=== PATIENT | female | born 1970 ===

== ENCOUNTER 2018-12-06 09:12 | Emergency (ER) | payer OTHER ==
[2018-12-06 09:18] VITALS: RESP 18
[2018-12-06] MEDS ORDERED: SODIUM CHLORIDE 0.9% 2,000 ML IV STA (09:32)
[2018-12-06] MEDS ORDERED: ONDANSETRON 4 MG/2 ML VIAL IVP STA ×2 (09:32→11:44)
[2018-12-06] MEDS ORDERED: KETOROLAC 30 MG/ML 1 ML VIAL IVP STA (09:32)
--- NOTE | 2018-12-06 09:46 | ED ---
Nausea/Vomiting/Diarrhea HPI - General Chief complaint: Nausea/Vomiting/Diarrhea Stated complaint: Vomiting Time Seen by Provider: 12/06/18 09:20 Source: patient, RN notes reviewed Mode of arrival: ambulatory Limitations: no limitations - History of Present Illness Initial comments: This a 48-year-old female presents emergency Department chief complaint left flank pain. Patient states that she has a history kidney stones. Patient states that she has hesitancy of urination at this time. She reports no fevers or chills at home temp 99.9 currently. Patient states pain worsens morning and she cannot tolerated. Patient does admit to nausea vomiting. Denies any diarrhea constipation. Patient states his pain feels exactly the same as her prior kidney stones. - Related Data Home Medications Medication Instructions Recorded Confirmed Acetaminophen/Pamabrom [Midol 1 tab PO Q12H 12/06/18 12/06/18 Cap[place]] Previous Rx's Medication Instructions Recorded Hydrocodone/Acetaminophen [[place] 1 tab PO Q6HR PRN #12 tab 12/06/18 5-325] Ketorolac [Toradol] 10 mg PO Q8HR #15 tab 12/06/18 Ondansetron Odt [Zofran Odt] 4 mg PO Q8HR PRN #10 tab 12/06/18 Allergies Allergy/AdvReac Type Severity Reaction Status Date / Time No Known Allergies Allergy Verified 12/06/18 09:28 Review of Systems ROS Statement: Those systems with pertinent positive or pertinent negative responses have been documented in the HPI. ROS Other: All systems not noted in ROS Statement are negative. Past Medical History Past Medical History: No Reported History History of Any Multi-Drug Resistant Organisms: None Reported Past Surgical History: No Surgical Hx Reported Past Psychological History: No Psychological Hx Reported Smoking Status: Current every day smoker Past Alcohol Use History: Occasional Past Drug Use History: None Reported General Exam Limitations: no limitations General appearance: alert, in no apparent distress Head exam: Present: atraumatic, normocephalic, normal inspection Neck exam: Present: normal inspection. Absent: tenderness, meningismus, lymphadenopathy Respiratory exam: Present: normal lung sounds bilaterally. Absent: respiratory distress, wheezes, rales, rhonchi, stridor Cardiovascular Exam: Present: regular rate, normal rhythm, normal heart sounds. Absent: systolic murmur, diastolic murmur, rubs, gallop, clicks GI/Abdominal exam: Present: soft, tenderness (Left-sided), normal bowel sounds. Absent: distended, guarding, rebound, rigid Back exam: Absent: CVA tenderness (R), CVA tenderness (L) Skin exam: Present: warm, dry, intact, normal color. Absent: rash Course Vital Signs 12/06/18 12/06/18 09:15 10:46 Temperature 99.9 F H Pulse Rate 80 68 Respiratory 18 18 Rate Blood Pressure 143/81 115/76 O2 Sat by Pulse 98 99 Oximetry Medical Decision Making - Medical Decision Making 48-year-old female presented for left flank pain. Patient did have labs, CT and urinalysis. Urine was cultured. Evidence of hematuria and nitrite positive with WBCs. Patient given [address] Hopper discuss case with Dr. Michaels who recommended patient be given antibiotics discharged with Levaquin and will follow-up in his office tomorrow. - Lab Data Result diagrams: 12/06/18 09:50 12/06/18 09:50 Lab Results 12/06/18 12/06/18 12/06/18 Range/Units 09:30 09:50 09:50 WBC 12.4 H (3.8-10.6) k/uL RBC 5.03 (3.80-5.40) m/uL Hgb 15.0 (11.4-16.0) gm/dL Hct 46.7 H (34.0-46.0) % MCV 92.8 (80.0-100.0) fL MCH 29.8 (25.0-35.0) pg MCHC 32.1 (31.0-37.0) g/dL RDW 14.8 (11.5-15.5) % Plt Count 222 (150-450) k/uL Neutrophils % 76 % Lymphocytes % 16 % Monocytes % 5 % Eosinophils % 2 % Basophils % 1 % Neutrophils # 9.5 H (1.3-7.7) k/uL Lymphocytes # 1.9 (1.0-4.8) k/uL Monocytes # 0.6 (0-1.0) k/uL Eosinophils # 0.2 (0-0.7) k/uL Basophils # 0.1 (0-0.2) k/uL Sodium 140 (137-145) mmol/L Potassium 4.3 (3.5-5.1) mmol/L Chloride 108 H (98-107) mmol/L Carbon Dioxide 23 (22-30) mmol/L Anion Gap 9 mmol/L BUN 21 H (7-17) mg/dL Creatinine 0.83 (0.52-1.04) mg/dL Est GFR (CKD-EPI)AfAm >90 (>60 ml/min/1.73 sqM) Est GFR (CKD-EPI)NonAf 84 (>60 ml/min/1.73 sqM) Glucose 106 H (74-99) mg/dL Plasma Lactic Acid Santi (0.7-2.0) mmol/L Calcium 10.2 (8.4-10.2) mg/dL Total Bilirubin 0.4 (0.2-1.3) mg/dL AST 35 (14-36) U/L ALT 46 (9-52) U/L Alkaline Phosphatase 116 (38-126) U/L Total Protein 7.4 (6.3-8.2) g/dL Albumin 4.5 (3.5-5.0) g/dL Amylase 67 (30-110) U/L Lipase 219 (23-300) U/L Urine Color Yellow Urine Appearance Cloudy H (Clear) Urine pH 5.5 (5.0-8.0) Ur Specific [place] 1.036 H (1.001-1.035) Urine Protein 1+ H (Negative) Urine Glucose (UA) Negative (Negative) Urine Ketones Negative (Negative) Urine Blood Moderate H (Negative) Urine Nitrite Positive H (Negative) Urine Bilirubin Negative (Negative) Urine Urobilinogen 2.0 (<2.0) mg/dL Ur Leukocyte Esterase Moderate H (Negative) Urine RBC 128 H (0-5) /hpf Urine WBC 48 H (0-5) /hpf Ur Squamous Epith Cells 19 H (0-4) /hpf Calcium Oxalate Crystal Occasional H (None) /hpf Amorphous Sediment Rare H (None) /hpf Urine Bacteria Many H (None) /hpf Urine Mucus Moderate H (None) /hpf 12/06/18 Range/Units 09:50 WBC (3.8-10.6) k/uL RBC (3.80-5.40) m/uL Hgb (11.4-16.0) gm/dL Hct (34.0-46.0) % MCV (80.0-100.0) fL MCH (25.0-35.0) pg MCHC (31.0-37.0) g/dL RDW (11.5-15.5) % Plt Count (150-450) k/uL Neutrophils % % Lymphocytes % % Monocytes % % Eosinophils % % Basophils % % Neutrophils # (1.3-7.7) k/uL Lymphocytes # (1.0-4.8) k/uL Monocytes # (0-1.0) k/uL Eosinophils # (0-0.7) k/uL Basophils # (0-0.2) k/uL Sodium (137-145) mmol/L Potassium (3.5-5.1) mmol/L Chloride (98-107) mmol/L Carbon Dioxide (22-30) mmol/L Anion Gap mmol/L BUN (7-17) mg/dL Creatinine (0.52-1.04) mg/dL Est GFR (CKD-EPI)AfAm (>60 ml/min/1.73 sqM) Est GFR (CKD-EPI)NonAf (>60 ml/min/1.73 sqM) Glucose (74-99) mg/dL Plasma Lactic Acid Santi 1.3 (0.7-2.0) mmol/L Calcium (8.4-10.2) mg/dL Total Bilirubin (0.2-1.3) mg/dL AST (14-36) U/L ALT (9-52) U/L Alkaline Phosphatase (38-126) U/L Total Protein (6.3-8.2) g/dL Albumin (3.5-5.0) g/dL Amylase (30-110) U/L Lipase (23-300) U/L Urine Color Urine Appearance (Clear) Urine pH (5.0-8.0) Ur Specific [place] (1.001-1.035) Urine Protein (Negative) Urine Glucose (UA) (Negative) Urine Ketones (Negative) Urine Blood (Negative) Urine Nitrite (Negative) Urine Bilirubin (Negative) Urine Urobilinogen (<2.0) mg/dL Ur Leukocyte Esterase (Negative) Urine RBC (0-5) /hpf Urine WBC (0-5) /hpf Ur Squamous Epith Cells (0-4) /hpf Calcium Oxalate Crystal (None) /hpf Amorphous Sediment (None) /hpf Urine Bacteria (None) /hpf Urine Mucus (None) /hpf Disposition Clinical Impression: UTI (urinary tract infection), Ureteral calculi Disposition: HOME SELF-CARE Condition: Stable Instructions (If sedation given, give patient instructions): Kidney Stones (ED) Additional Instructions: Please call urology today and schedule appointment for tomorrow as directed.Please return to the Emergency Department if symptoms worsen or any other concerns. Prescriptions: Hydrocodone/Acetaminophen [[place] 5-325] 1 tab PO Q6HR PRN #12 tab PRN Reason: Pain Ketorolac [Toradol] 10 mg PO Q8HR #15 tab Ondansetron Odt [Zofran Odt] 4 mg PO Q8HR PRN #10 tab PRN Reason: Nausea Is patient prescribed a controlled substance at d/c from ED?: Yes When asked, does pt state using other controlled substances?: No If prescribed controlled substance>3 days was MAPS reviewed?: Prescribed <3 Days If opioid is for acute pain is fill amount 7 days or less?: Yes If Rx opioid, was Start Talking consent form obtained?: Yes Referrals: None,Stated [Primary Care Provider] - 1-2 days Evangelist Michaels MD [STAFF PHYSICIAN] - 1-2 days Time of Disposition: 11:48
[2018-12-06 10:12] LABS: Basophils # (A) 0.1 k/uL (0-0.2); Basophils % (A) 1 %; Eosinophils # (A) 0.2 k/uL (0-0.7); Eosinophils % (A) 2 %; HCT 46.7 % (34.0-46.0); Lymphocytes # (A) 1.9 k/uL (1.0-4.8); Lymphocytes % (A) 16 %; MCH 29.8 pg (25.0-35.0); MCHC 32.1 g/dL (31.0-37.0); MCV 92.8 fL (80.0-100.0); Mean Platelet Volume 7.6; Monocytes # (A) 0.6 k/uL (0-1.0); Monocytes % (A) 5 %; Neutrophils # (A) 9.5 k/uL (1.3-7.7); Neutrophils % (A) 76 %; Platelet Count 222 k/uL (150-450); RBC 5.03 m/uL (3.80-5.40); RDW 14.8 % (11.5-15.5); WBC 12.4 k/uL (3.8-10.6)
[2018-12-06 10:14] LABS: Amorphous Sediment,Urine Rare /hpf; Appearance,Urine Cloudy (Clear); Bacteria,Urine Many /hpf; Bilirubin,Urine Negative (Negative); Blood,Urine Moderate (Negative); Calcium Oxalate Crystals,Urine Occasional /hpf; Color,Urine Yellow; Glucose,Urine (UA) Negative (Negative); Ketones,Urine Negative (Negative); Leukocyte Esterase,Urine Moderate (Negative); Mucus,Urine Moderate /hpf; Nitrite,Urine Positive (Negative); PH, Urine 5.5 (5.0-8.0); Protein,Urine 1+ (Negative); RBC,Urine 128 /hpf (0-5); Specific Gravity,Urine 1.036 (1.001-1.035); Squamous Epithelial Cell,Urine 19 /hpf (0-4)
[2018-12-06] MEDS ORDERED: cefTRIAXone IN SWFI 1,000 MG/10 ML SYRINGE IVP STA ×2 (10:19→11:44)
[2018-12-06 10:20] LABS: ALT 46 U/L (9-52); AST 35 U/L (14-36); African American GFR (CKD) >90 (>60 ml/min/1.73 sqM); Albumin 4.5 g/dL (3.5-5.0); Alkaline Phosphatase 116 U/L (38-126); Amylase 67 U/L (30-110); Anion Gap 9 mmol/L; Blood Urea Nitrogen 21 mg/dL (7-17); Calcium 10.2 mg/dL (8.4-10.2); Carbon Dioxide 23 mmol/L (22-30); Chloride 108 mmol/L (98-107); Glucose 106 mg/dL (74-99); Lipase 219 U/L (23-300); Potassium 4.3 mmol/L (3.5-5.1); Sodium 140 mmol/L (137-145); Total Bilirubin 0.4 mg/dL (0.2-1.3); Total Protein 7.4 g/dL (6.3-8.2)
--- NOTE | 2018-12-06 10:55 | CT ---
EXAMINATION TYPE: CT abdomen pelvis wo con DATE OF EXAM: 12/06/2018 COMPARISON: None HISTORY: 48-year-old female Left flank pain, hematuria, nausea, vomiting, dysuria. History of prior stones. CT DLP: 523.7 mGycm. Automated exposure control for dose reduction was used. TECHNIQUE: Contiguous axial scanning of the abdomen and pelvis without IV contrast. Coronal and sagit frederick reconstructions performed. FINDINGS: Heart normal size without pericardial effusion. Mild strandy dependent atelectasis without pleural ef fusion. Noncontrast appearance of the liver, gallbladder, adrenal glands, right kidney, spleen, and pancreas show no gross abnormality. There is moderate left-sided hydronephrosis and hydroureter with a 6 mm obstructing calculus at the l eft UVJ. No dilated small bowel, free fluid, or free air. No mesenteric or retroperitoneal lymphadenopathy. Mild generalized colonic wall thickening likely secondary to nondistention. Normal appendix. Bladder is collapsed but with a suggestion of circumferential wall thickening on the sagittal series. Anteverted uterus and bilateral ovaries are visualized. No abnormal fluid collection in the pelvis o r pelvic lymphadenopathy seen. Bones: No osseous destructive process. IMPRESSION: 1. A 6 mm calculus at the left UVJ with moderate obstructive uropathy. 2. Circumferential bladder wall thickening. Correlate for cystitis. 3. Mild generalized circumferential wall thickening of the colon likely due to nondistention rather than mild colitis. Clinically correlate.
[2018-12-06] MEDS ORDERED: MORPHINE SULFATE 4 MG/ML SYRINGE IVP STA (11:44)
[2018-12-06 12:38] VITALS: BP 112/64; PULSE 70; TEMP 97.7
== END 2018-12-06 12:48 | disposition home or self-care (01) ==
LOC: EC 09:12
DX: N20.1 Calculus of ureter (principal); N39.0 Urinary tract infection, site not specified; F17.200 Nicotine dependence, unspecified, uncomplicated; Z79.891 Long term (current) use of opiate analgesic; Z79.899 Other long term (current) drug therapy; Z87.442 Personal history of urinary calculi
CPT/HCPCS: 99284; 96374; 96375 ×3; 96376 ×2; 96361 ×2; 36415; 80053; 82150; 83605; 83690; 85025; 81001; 87086; 74176; J2270; J2405; J0696; J1885; 87077; 87186

== ENCOUNTER 2021-07-30 12:13 | Inpatient (IN) | payer BC ==
[2021-07-30] MEDS ORDERED: DINOPROSTONE 10 MG INSERT.ER VAGINAL ONE (16:01)
[2021-07-30 16:30] LABS: Glucose,Whole Blood 77 mg/dL (75-99)
[2021-07-31] MEDS: BUTORPHANOL 1 MG/ML 1 ML VIAL IV PRN ×3 (02:58→12:05)
[2021-07-31] MEDS ORDERED: METHYLERGONOVINE 0.2 MG/ML 1 ML AMP IM PRN (05:56)
[2021-07-31] MEDS ORDERED: OXYTOCIN 10 UNIT/ML 1 ML VIAL IM PRN (05:56)
[2021-07-31] MEDS ORDERED: TERBUTALINE 1 MG/ML VIAL SQ PRN (05:56)
[2021-07-31] MEDS ORDERED: CARBOPROST TROMETHAMINE 250 MCG/ML 1 ML AMP IM PRN (05:56)
[2021-07-31] MEDS ORDERED: LIDOCAINE 1% (PF) 10 MG/ML (30 ML SDV) SQ PRN (05:56)
[2021-07-31] MEDS ORDERED: OXYTOCIN 30 UNITS/500 ML NS 30 UNIT in SALINE 1 500ML.BAG IV SCH ×2 (06:00→20:45)
[2021-07-31] MEDS: LACTATED RINGERS 1,000 ML IV SCH ×4 (06:09→21:25)
[2021-07-31 06:38] LABS: Basophils # (A) 0.1 k/uL (0-0.2); Basophils % (A) 1 %; Eosinophils # (A) 0.1 k/uL (0-0.7); Eosinophils % (A) 1 %; HCT 36.4 % (34.0-46.0); HGB 12.1 gm/dL (11.4-16.0); Lymphocytes # (A) 1.4 k/uL (1.0-4.8); Lymphocytes % (A) 13 %; MCH 32.4 pg (25.0-35.0); MCHC 33.3 g/dL (31.0-37.0); MCV 97.4 fL (80.0-100.0); Mean Platelet Volume 8.6; Monocytes # (A) 0.5 k/uL (0-1.0); Monocytes % (A) 5 %; Neutrophils # (A) 8.2 k/uL (1.3-7.7); Neutrophils % (A) 79 %; Platelet Count 134 k/uL (150-450); RBC 3.74 m/uL (3.80-5.40); RDW 13.1 % (11.5-15.5); WBC 10.3 k/uL (3.8-10.6)
--- NOTE | 2021-07-31 07:53 | P.HPOB ---
History of Present Illness H&P Date: 07/31/21 Chief Complaint: Induction of labor 51 year old presents at 39 weeks 4 days for induction of labor. Her cervix was closed, thick and -3. She was idania irregularly. heart tones 140 with moderate variability and reactive. Patient is here for two-stage induction of labor and Cervidil was placed last night. She contracted throughout the night and is now 1 cm, 60% effaced, and -2 station. Review of Systems All systems: negative Constitutional: Denies chills, Denies fever Eyes: denies blurred vision, denies pain Ears, nose, mouth and throat: Denies headache, Denies sore throat Cardiovascular: Denies chest pain, Denies shortness of breath Respiratory: Denies cough Gastrointestinal: Denies abdominal pain, Denies diarrhea, Denies nausea, Denies vomiting Genitourinary: Denies dysuria, Denies hematuria Musculoskeletal: Denies myalgias Integumentary: Denies pruritus, Denies rash Neurological: Denies numbness, Denies weakness Psychiatric: Denies anxiety, Denies depression Endocrine: Denies fatigue, Denies weight change Past Medical History Past Medical History: No Reported History Additional Past Medical History / Comment(s): Obstetrical history: Patient had a full workup including cardiac stress test prior to becoming . These are 20-year-old donor eggs and she's had good care with me since her first trimester. She has diet-controlled gestational diabetes. History of Any Multi-Drug Resistant Organisms: None Reported Past Surgical History: No Surgical Hx Reported Past Anesthesia/Blood Transfusion Reactions: No Reported Reaction Past Psychological History: No Psychological Hx Reported Smoking Status: Former smoker Past Alcohol Use History: None Reported Past Drug Use History: None Reported - Past Family History Mother Family Medical History: No Reported History Medications and Allergies Allergies Allergy/AdvReac Type Severity Reaction Status Date / Time No Known Allergies Allergy Verified 07/30/21 16:01 Exam Osteopathic Statement: *. No significant issues noted on an osteopathic structural exam other than those noted in the History and Physical/Consult. Vital Signs Temp Pulse Resp BP Pulse Ox 07/31/21 05:48 97.2 F L 83 17 129/66 07/30/21 23:49 96.8 F L 75 17 123/77 07/30/21 19:51 97.8 F 86 17 119/56 07/30/21 16:07 97.3 F L 71 16 109/59 97 Intake and Output 07/30/21 07/31/21 07/31/21 22:59 06:59 14:59 Other: # Voids 2 2 Weight 86.183 kg Heart: Regular rate and rhythm Lungs: Clear to auscultation bilaterally Abdomen: Soft, nontender Extremities: Negative Homans sign Results Result Diagrams: 07/31/21 06:17 Abnormal Lab Results - Last 24 Hours (Table) 07/31/21 Range/Units 06:17 RBC 3.74 L (3.80-5.40) m/uL Plt Count 134 L (150-450) k/uL Neutrophils # 8.2 H (1.3-7.7) k/uL Assessment and Plan (1) 39 weeks gestation of Current Visit: Yes Status: Acute Code(s): Z3A.39 - 39 WEEKS GESTATION OF SNOMED Code(s): 11555605 (2) Encounter for induction of labor Current Visit: Yes Status: Acute Code(s): Z34.90 - ENCNTR FOR SUPRVSN OF NORMAL , UNSP, UNSP TRIMESTER SNOMED Code(s): 325947939 (3) resulting from in-vitro fertilization Narrative/Plan: Donor eggs from a 20-year-old Current Visit: Yes Status: Acute Code(s): O09.819 - SUPRVSN OF PREG RSLT FROM ASSISTED REPRODCTV TECH, UNSP TRI SNOMED Code(s): 89518554221662 Plan: 1. The plan was for Cervidil induction of labor: She did have this and is now 1 cm dilated 2. Pitocin and amniotomy for induction of labor today 3. Anticipate normal vaginal delivery
[2021-07-31] MEDS ORDERED: SODIUM CHLORIDE 0.9% 100 ML BAG ONE (17:44)
[2021-07-31] MEDS ORDERED: fentaNYL (PF) 50 MCG/ML 5 ML AMP ONE (17:44)
[2021-07-31] MEDS ORDERED: ROPIVACAINE 5MG/ML 20ML VIAL ONE (17:44)
[2021-07-31] MEDS ORDERED: CITRIC ACID-SODIUM CITRATE 15 ML CUP PO ONE (19:42)
[2021-07-31] MEDS ORDERED: NALBUPHINE 10 MG/ML (1 ML AMP) ONE (19:51)
[2021-07-31] MEDS ORDERED: fentaNYL (PF) 50 MCG/ML 2 ML AMP ONE (19:51)
[2021-07-31] MEDS ORDERED: MORPHINE SULFATE (PF) 0.3 MG/0.3 ML SYR ONE (19:51)
[2021-07-31] MEDS ORDERED: ePHEDrine 50 MG/ML 1 ML VIAL ONE (19:51)
[2021-07-31] MEDS ORDERED: OXYTOCIN 30 UNITS/500 ML NS BAG IV ONE (19:51)
[2021-07-31] MEDS ORDERED: diphenhydrAMINE 50 MG CAP PO PRN (20:36)
[2021-07-31] MEDS ORDERED: NALOXONE 0.4 MG/ML 1 ML VIAL IV PRN (20:36)
[2021-07-31] MEDS ORDERED: METOCLOPRAMIDE 5 MG/ML 2 ML VIAL IVP PRN (20:36)
[2021-07-31] MEDS ORDERED: LANOLIN CREAM 5 GM TUBE TOPICAL PRN (20:36)
[2021-07-31] MEDS ORDERED: diphenhydrAMINE 25 MG CAP PO PRN (20:36)
[2021-07-31] MEDS ORDERED: ONDANSETRON 4 MG/2 ML VIAL IVP PRN (20:36)
[2021-07-31] MEDS ORDERED: ZOLPIDEM 5 MG TAB PO PRN (20:36)
[2021-07-31] MEDS ORDERED: diphenhydrAMINE 50 MG/ML 1 ML VIAL IVP PRN ×2 (20:36)
[2021-07-31] MEDS ORDERED: SIMETHICONE 80 MG CHEWABLE PO PRN (20:36)
[2021-07-31] MEDS ORDERED: KETOROLAC 30 MG/ML 1 ML VIAL IVP SCH (21:31)
[2021-07-31] MEDS: KETOROLAC 30 MG/ML 1 ML VIAL IVP SCH (23:27)
[2021-08-01] MEDS: LACTATED RINGERS 1,000 ML IV SCH ×2 (01:21→20:26)
[2021-08-01] MEDS: ACETAMINOPHEN TAB 500 MG TAB PO SCH ×4 (01:22→20:26)
[2021-08-01] MEDS: KETOROLAC 30 MG/ML 1 ML VIAL IVP SCH ×4 (03:41→22:54)
[2021-08-01] MEDS ORDERED: Rhogam IMMUNE GLOBULIN 1,500 UNIT/1 ML IM ONE (05:17)
[2021-08-01] MEDS ORDERED: KETOROLAC 30 MG/ML 1 ML VIAL IVP SCH (06:00)
[2021-08-01 07:54] LABS: Basophils % (A) 0 %; Eosinophils % (A) 0 %; HGB 10.8 gm/dL (11.4-16.0); Lymphocytes # (A) 1.3 k/uL (1.0-4.8); Lymphocytes % (A) 13 %; MCH 32.7 pg (25.0-35.0); MCHC 33.8 g/dL (31.0-37.0); MCV 96.7 fL (80.0-100.0); Mean Platelet Volume 8.6; Monocytes # (A) 0.5 k/uL (0-1.0); Monocytes % (A) 5 %; Neutrophils % (A) 80 %; Platelet Count 150 k/uL (150-450); RBC 3.31 m/uL (3.80-5.40)
[2021-08-01] MEDS: SENNOSIDES-DOCUSATE SODIUM 1 EACH TAB PO SCH ×2 (08:00→20:26)
--- NOTE | 2021-08-01 15:50 | P.PNOBGPC ---
Subjective - Subjective Principal diagnosis: S/P 1*LTCS POD #1 Interval history: Patient seen and examined. Denies nausea, vomiting, chest pain, shortness of breath or any calf pain. Patient reports: Reports appetite normal, Reports voiding normally, Reports pain well controlled, Reports ambulating normally : doing well Objective - Vital Signs Latest vital signs: Vital Signs Temp Pulse Resp BP Pulse Ox 08/01/21 12:00 97.7 F 72 16 93/50 98 08/01/21 08:20 98.5 F 77 17 90/53 98 08/01/21 04:00 97.8 F 76 16 106/65 98 08/01/21 00:00 97.7 F 77 16 105/66 97 07/31/21 22:36 96.6 F L 69 16 115/62 97 07/31/21 22:04 96.9 F L 71 16 109/57 97 07/31/21 21:36 97.5 F L 72 16 121/58 99 07/31/21 21:21 97.3 F L 73 16 123/66 100 07/31/21 21:06 97.2 F L 71 16 100/63 99 07/31/21 20:51 97.0 F L 66 15 109/67 99 07/31/21 20:36 97.1 F L 73 14 110/56 97 Intake and Output 08/01/21 08/01/21 08/01/21 06:59 14:59 22:59 Intake Total 1200 Output Total 200 500 Balance -200 700 Intake: Oral 1200 Output: Urine 200 500 Uretheral (Branch) 200 500 - Exam Lungs: bilateral: normal Chest: Normal S1, Normal S2 Extremities: Present: normal Abdomen: Present: normal appearance, soft. Absent: distention, tenderness Incision: Present: normal, dry, intact Uterus: Present: normal, firm - Labs Labs: Abnormal Lab Results - Last 24 Hours (Table) 08/01/21 Range/Units 07:04 RBC 3.31 L (3.80-5.40) m/uL Hgb 10.8 L (11.4-16.0) gm/dL Hct 32.0 L (34.0-46.0) % Neutrophils # 8.0 H (1.3-7.7) k/uL Assessment and Plan (1) 39 weeks gestation of Current Visit: Yes Status: Resolved Code(s): Z3A.39 - 39 WEEKS GESTATION OF SNOMED Code(s): 96556996 (2) Encounter for induction of labor Current Visit: Yes Status: Resolved Code(s): Z34.90 - ENCNTR FOR SUPRVSN OF NORMAL , UNSP, UNSP TRIMESTER SNOMED Code(s): 922507107 (3) resulting from in-vitro fertilization Current Visit: Yes Status: Resolved Code(s): O09.819 - SUPRVSN OF PREG RSLT FROM ASSISTED REPRODCTV TECH, UNSP TRI SNOMED Code(s): 55988976383108 (4) Status post primary low transverse section Current Visit: Yes Status: Acute Code(s): Z98.891 - HISTORY OF UTERINE SCAR FROM PREVIOUS SURGERY SNOMED Code(s): 636092785 Plan: 1. Increase ambulation 2. By mouth pain medication 3. Regular diet with flatus
--- NOTE | 2021-08-01 17:27 | P.PN ---
Progress Note - Text 08/01/21 1364 31-year-old female status post with an epidural catheter. Duramorph was dosed Y the epidural catheter, patient has VAS of 1 at rest no complains of nausea vomiting or pruritus.
[2021-08-01] MEDS: IBUPROFEN 600 MG TAB PO SCH (22:07)
[2021-08-02] MEDS: ACETAMINOPHEN TAB 500 MG TAB PO SCH ×4 (01:43→21:47)
[2021-08-02] MEDS: IBUPROFEN 600 MG TAB PO SCH ×3 (06:19→22:28)
--- NOTE | 2021-08-02 07:57 | P.OP ---
Date of Procedure: 07/31/21 Preoperative Diagnosis: 1. at 39 weeks 4 days 2. AMA 3. persistent Category II heart tones and remote from delivery Postoperative Diagnosis: 1. at 39 weeks 4 days 2. AMA 3. persistent Category II heart tones and remote from delivery Procedure(s) Performed: Primary low transverse Anesthesia: epidural Surgeon: Tiffanie Garibay [employer] Clerk #1: María Steiner Estimated Blood Loss (ml): 445 IV fluids (ml): 300 Urine output (ml): 200 Pathology: none sent Condition: stable Disposition: floor Indications for Procedure: 51-year-old presents at 39 weeks and 4 days for induction of labor. Her cervix was closed and thick. Cervidil was placed and she was 1 cm dilated in the morning. Amniotomy was performed clear fluid noted. Pitocin augmentation had also been started. heart tones are 130 with moderate variability and reactive. She did get an epidural when she was uncomfortable. When her cervix was 4 cm dilated for a few hours the baby started to have category II heart tones. Category II FHT managed following algorithm including initiation of corrective measure IV fluids and position changes. With the persistent presence of minimal variability and variable decelerations, a patient-centered huddle was held and the need for an expedited delivery was discussed with the patient. It is our clinical recommendation to proceed with the delivery and after questions were answered to the patient, she and her agree to proceed with the recommended plan. Operative Findings: Fibroid uterus noted, multiple small fibroids in the subserosal layer. Small but normal appearing ovaries and tubes. Viable male, Apgars 7, 9, weight 7 lbs. 9 oz. Description of Procedure: Patient was taken to the operating room where epidural anesthesia was found be adequate. She was prepped and draped in normal sterile fashion in dorsal supine position with a leftward tilt. Pfannenstiel skin incision was made the scalpel and carried through to the underlying layer of fascia with the scalpel. Fascia was incised in midline and carried bilaterally with the Browning scissors. The s uperior aspect of the fascial incision was grasped with [place] clamps elevated and the underlying rectus muscles dissected off with the Browning's. Attention was then turned to inferior aspect of same incision which in a similar fashion was grasped tented up and the underlying rectus muscles dissected off with the Browning's. The rectus muscles were the midline and the peritoneum was identified tented up and entered sharply with the scalpel. The incision was extended superiorly and inferiorly with good visualization of the bladder. The bladder blade was inserted and the vesicouterine peritoneum was incised the Metzenbaums then carried bilaterally and bladder flap created digitally. A low transverse incision was then made on the uterus with the scalpel. This was carried bilaterally and digital manner. 's head delivered atraumatically, nose and mouth bulb suctioned, cord clamped and cut, infant handed off to waiting nurses. Apgars 7,9, weight 7 lbs. 9 oz. cord blood was obtained for the cord blood collection via the instructions in the box. Placenta delivered manually, intact with three-vessel cord. The uterus is exteriorized and cleared of all clots and debris. The uterine incision was closed with 0 Vicryl in a running locked fashion. Second layer of the same sutures used in imbricating fashion to obtain excellent hemostasis. Both ovaries and tubes appeared normal. The uterus was placed back into the abdomen. The fascia was reapproximated using 0 Vicryl in a running fashion. The subcutaneous tissues closed with 3-0 Vicryl running fashion. The skin was closed reddy. Patient tolerated the procedure well, sponge and instrument counts were correct times 2 and she was taken to the recovery room in stable condition.
--- NOTE | 2021-08-02 07:58 | P.PNOBGPC ---
Subjective - Subjective Principal diagnosis: Status post primary low transverse postop day #2 Interval history: Patient seen and examined. Denies nausea, vomiting, chest pain, shortness of breath or any calf pain. Patient reports: Reports appetite normal, Reports voiding normally, Reports pain well controlled, Reports ambulating normally : doing well Objective - Vital Signs Latest vital signs: Vital Signs Temp Pulse Resp BP Pulse Ox 08/02/21 00:00 98.1 F 82 18 111/73 97 08/01/21 20:00 98.1 F 91 16 129/75 99 08/01/21 16:25 98.2 F 75 16 105/61 98 08/01/21 12:00 97.7 F 72 16 93/50 98 08/01/21 08:20 98.5 F 77 17 90/53 98 Intake and Output 08/01/21 08/02/21 08/02/21 22:59 06:59 14:59 Intake Total 600 Output Total 450 Balance 150 Intake: Oral 600 Output: Urine 450 Other: # Voids 1 - Exam Lungs: bilateral: normal Chest: Normal S1, Normal S2 Extremities: Present: normal Abdomen: Present: normal appearance, soft. Absent: distention, tenderness Incision: Present: normal, dry, intact Uterus: Present: normal, firm Assessment and Plan (1) 39 weeks gestation of Current Visit: Yes Status: Resolved Code(s): Z3A.39 - 39 WEEKS GESTATION OF SNOMED Code(s): 32896635 (2) Encounter for induction of labor Current Visit: Yes Status: Resolved Code(s): Z34.90 - ENCNTR FOR SUPRVSN OF NORMAL , UNSP, UNSP TRIMESTER SNOMED Code(s): 589062344 (3) resulting from in-vitro fertilization Current Visit: Yes Status: Resolved Code(s): O09.819 - SUPRVSN OF PREG RSLT FROM ASSISTED REPRODCTV TECH, UNSP TRI SNOMED Code(s): 93744334136747 (4) Status post primary low transverse section Current Visit: Yes Status: Acute Code(s): Z98.891 - HISTORY OF UTERINE SCAR FROM PREVIOUS SURGERY SNOMED Code(s): 454103063 Plan: 1. Increase ambulation 2. By mouth pain medication
[2021-08-02] MEDS: SENNOSIDES-DOCUSATE SODIUM 1 EACH TAB PO SCH ×2 (08:42→21:47)
[2021-08-02 17:17] VITALS: RESP 16
[2021-08-03] MEDS: ACETAMINOPHEN TAB 500 MG TAB PO SCH ×2 (05:32)
[2021-08-03] MEDS: SENNOSIDES-DOCUSATE SODIUM 1 EACH TAB PO SCH (06:25)
[2021-08-03 07:59] VITALS: BP 114/67; PULSE 84; TEMP 96.9
--- NOTE | 2021-08-03 08:16 | P.DS ---
Providers Date of admission: 07/30/21 15:35 Expected date of discharge: 08/03/21 Attending physician: Tiffanie Garibay Primary care physician: Stated None - Discharge Diagnosis(es) (1) 39 weeks gestation of Current Visit: Yes Status: Resolved (2) Encounter for induction of labor Current Visit: Yes Status: Resolved (3) resulting from in-vitro fertilization Current Visit: Yes Status: Resolved (4) Status post primary low transverse section Current Visit: Yes Status: Acute Hospital Course: Patient presented for induction of labor due to advanced maternal age. She underwent a primary low transverse for persistent category 2 heart tones. Patient is doing well and pain is controlled. She denies nausea, vomiting, chest pain, shortness of breath or any calf pain. Her fundus is firm and her lochia is minimal. She is tolerating regular diet and passing flatus. Patient will be discharged home day #3 in stable condition to follow- up with me in a few days. Plan - Discharge Summary New Discharge Prescriptions: New Ibuprofen [Motrin] 600 mg PO QID #40 tab oxyCODONE HCL [OxyIR] 5 mg PO Q4-6H PRN #18 tab PRN Reason: Pain Discharge Medication List Ibuprofen [Motrin] 600 mg PO QID #40 tab 08/03/21 [Rx] oxyCODONE HCL [OxyIR] 5 mg PO Q4-6H PRN #18 tab 08/03/21 [Rx] Follow up Appointment(s)/Referral(s): Tiffanie Garibay DO [Doctor of Osteopathic Medicine] - 09/08/21 10:45 am Discharge Disposition: HOME SELF-CARE
[2021-08-03] MEDS: IBUPROFEN 600 MG TAB PO SCH ×2 (10:26)
== END 2021-08-03 12:30 | disposition home or self-care (01) | DRG 788 ==
LOC: 4FBP 15:35
PROVIDERS: ADMIT Obstetrics & Gynecology; ATTEND Obstetrics & Gynecology
PROC: 10907ZC Drainage of Amniotic Fluid, Therapeutic from Products of Conception, Via Natural or Artificial Opening (ICD-10-PCS; 2021-07-31)
PROC: 3E033VJ Introduction of Other Hormone into Peripheral Vein, Percutaneous Approach (ICD-10-PCS; 2021-07-31)
PROC: 3E0P7VZ Introduction of Hormone into Female Reproductive, Via Natural or Artificial Opening (ICD-10-PCS; 2021-07-31)
PROC: 4A0HXCZ Measurement of Products of Conception, Cardiac Rate, External Approach (ICD-10-PCS; 2021-07-31)
PROC: 10D00Z1 Extraction of Products of Conception, Low, Open Approach (ICD-10-PCS; principal; 2021-07-31 20:00)
DX: O76 Abnormality in fetal heart rate and rhythm complicating labor and delivery (principal); O24.420 Gestational diabetes mellitus in childbirth, diet controlled; O34.13 Maternal care for benign tumor of corpus uteri, third trimester; D25.2 Subserosal leiomyoma of uterus; O09.513 Supervision of elderly primigravida, third trimester; Z86.32 Personal history of gestational diabetes; Z87.891 Personal history of nicotine dependence; Z3A.39 39 weeks gestation of pregnancy; Z37.0 Single live birth
CPT/HCPCS: 85025; 85461; 86850; 86870; 86880; 86900; 86901; 86902

== ENCOUNTER → 2024-08-22 | Outpatient (CLI) | payer BC ==
--- NOTE | 2024-08-22 17:32 | MM ---
Reason for Exam: Screening (asymptomatic). Last mammogram was performed 2 year(s) and 0 month(s) ago. Patient History: Menarche at age 13. First Full-Term at age 51. Late child-bearing (after 30). Unspecified Hormone, from age 48 until age 50. Risk Values: Jaqueline 5 year model risk: 1.6%. NCI Lifetime model risk: 11.4%. Prior Study Comparison: 08/27/2022 Bilateral MG 3D screening mammo w/cad, [facility]. Tissue Density: There are scattered areas of fibroglandular density. Findings: Analyzed By CAD. There is no suspicious group of microcalcifications or new suspicious mass in either breast. Overall Assessment: Negative, BI-RAD 1 Management: Screening Mammogram of both breasts in 1 year. Patient should continue monthly self-breast exams. A clinical breast exam by your physician is recommended on an annual basis. This exam should not preclude additional follow-up of suspicious palpable abnormalities. Note on Jaqueline scores and lifetime risk: 1. A Jaqueline score greater than 3% is considered moderate risk. If this is the case, consider specialist referral to assess eligibility for a risk reducing agent. 2. If overall lifetime risk for the development of breast cancer is 20% or higher, the patient may qualify for future screening with alternating mammogram and breast MRI. [facility], , 08/22/2024 5:29 PM. Electronically signed and approved by: Maite Villalpando M.D. Radiologist
== END | disposition home or self-care (01) ==
LOC: RADMAMWWP 13:32
PROVIDERS: ATTEND Family Medicine
DX: Z12.31 Encounter for screening mammogram for malignant neoplasm of breast (principal); R92.323 Mammographic fibroglandular density, bilateral breasts
CPT/HCPCS: 77063; 77067